=== PATIENT | male | born 1980 | race African-American/Black ===

== ENCOUNTER → 2017-10-30 | Day surgery (SDC) | payer OTHER ==
[~2017-10-30] VITALS: Ht 175.3 cm; Wt 79.4 kg
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
== END ==
LOC: STS 01:58
DX: S39.840A Fracture of corpus cavernosum penis, initial encounter (principal); X58.XXXA Exposure to other specified factors, initial encounter; N52.9 Male erectile dysfunction, unspecified; F17.290 Nicotine dependence, other tobacco product, uncomplicated
CPT/HCPCS: J0131; J0690; J2250